=== PATIENT | female | born 1955 ===

== ENCOUNTER 2017-10-28 08:17 | Day surgery (SDC) | payer OTHER ==
[~2017-10-28 08:17] MED LIST: UNISOM25 MG PO
[2017-10-28] MEDS ORDERED: OXYC1TAB9 PO (11:15)
[2017-10-28] MEDS ORDERED: DUI500 PO (11:15)
== END 2017-10-28 13:50 | disposition home or self-care (01) ==
LOC: CIR.AMB 08:17
DX: M75.01 Adhesive capsulitis of right shoulder (principal)